=== PATIENT | male | born 1935 | race Caucasian/White ===

== ENCOUNTER 2016-10-29 11:02 | Emergency (ER) | payer MEDICARE, MEDICAID ==
[~2016-10-29] VITALS: Ht 180.3 cm; Wt 76.2 kg
[2016-10-29] MEDS ORDERED: IV NORMAL SALINE 500 ML BAG IV ONE (11:30)
[2016-10-29] MEDS ORDERED: CITA10TA9 PO (11:32)
[2016-10-29] MEDS ORDERED: ZOLP10TA6 PO (11:32)
[2016-10-29] MEDS ORDERED: HYDR-3326 PO (11:32)
[2016-10-29] MEDS ORDERED: VALS80TA2 PO (11:32)
[2016-10-29] MEDS ORDERED: FURO-151 PO (11:32)
[2016-10-29] MEDS ORDERED: CLOP75TA33 PO (11:32)
[2016-10-29] MEDS ORDERED: ASPI81TA31 PO (11:32)
[2016-10-29] MEDS ORDERED: METO50TA3 PO (11:32)
[2016-10-29 11:39] LABS: BASOPHILS % (AUTO) 0.5 % (0.0-2.0); EOSINOPHILS # (AUTO) 0.3 K/uL (0.0-0.7); EOSINOPHILS % (AUTO) 5.1 % (0.0-7.0); HEMATOCRIT 40.1 % (40-50); HEMOGLOBIN 13.2 G/DL (14.0-18.0); LYMPHOCYTES # (AUTO) 0.8 K/UL (0.8-4.8); LYMPHOCYTES % (AUTO) 12.9 % (20.5-51.5); MEAN CORPUSCULAR HEMOGLOBIN 28.9 UUG (27.0-31.0); MEAN CORPUSCULAR HGB CONC 33 g/dL (32.0-37.0); MONOCYTES # (AUTO) 0.3 K/UL (0.1-1.30); MONOCYTES % (AUTO) 5.8 % (0.0-11.0); NEUTROPHILS # (AUTO) 4.6 K/UL (1.8-8.9); NEUTROPHILS % (AUTO) 75.7 % (38.5-71.5); PLATELET COUNT (AUTO) 263 K/UL (150-450); RED BLOOD CELL COUNT(AUTO) 4.56 MIL/UL (4.7-6.1)
[2016-10-29 11:47] LABS: CARBON DIOXIDE 29 mmol/L (21-32); CHLORIDE 104 mmol/L (98-107); GLUCOSE 97 mg/dL (74-106); POTASSIUM 3.8 mmol/L (3.5-5.1); UREA NITROGEN, BLOOD 22 mg/dL (7-18)
[2016-10-29 11:53] LABS: ALANINE AMINOTRANSFERASE 13 U/L (16-63); ALKALINE PHOSPHATASE 101 U/L (50-136); ASPARTATE AMINOTRANSFERASE 13 U/L (15-37); BILIRUBIN,DIRECT 0.1 mg/dL (0.0-0.2); BILIRUBIN,TOTAL 0.6 mg/dL (0.2-1.0); TOTAL PROTEIN, SERUM 7.2 g/dL (6.4-8.2)
--- NOTE | 2016-10-29 12:36 | NUR ---
Patient property management form completed and signed by patient. Pt has $283 gallardo which he states he would like to keep with him, pt was advised to send gallardo home with family [facility] but pt declined.
[2016-10-29] MEDS ORDERED: AZITHROMYCIN 250 MG TABLET PO ONE (13:30)
--- NOTE | 2016-10-29 13:34 | NUR ---
DCPatient discharged to home in stable conditon. Written and verbal after care instructions given, along with prescription for Azithromycin. Patient verbalizes understanding of instructions. No further questions or concerns noted prior on leaving the ED.
[2016-10-29 13:35] VITALS: BP 148/69
[2016-10-29] MEDS ORDERED: AZITHROMYCIN 250 MG TABLET ONE (13:38)
== END 2016-10-29 13:43 | disposition home or self-care (01) ==
LOC: ER 11:05
DX: I95.9 Hypotension, unspecified (principal); Z95.1 Presence of aortocoronary bypass graft; Z93.3 Colostomy status; Z88.6 Allergy status to analgesic agent; Z79.82 Long term (current) use of aspirin; Z95.818 Presence of other cardiac implants and grafts
CPT/HCPCS: 36415; 70030-TC; 71010; 85025; 85730; 93005; A4663; J7040; Q0144